=== PATIENT | female | born 1990 | race African-American/Black ===

== ENCOUNTER 2017-07-17 08:55 | Day surgery (SDC) | payer BC, SELFPAY ==
[2017-07-17] MEDS ORDERED: Scopolamine 1.5 mg/72 hour Patch ONE (09:45)
[2017-07-17] MEDS ORDERED: Ketorolac Tromethamine 30 MG/ML VIAL ONE (09:48)
[2017-07-17] MEDS ORDERED: Propofol 200 MG/20 ML VIAL ONE (10:11)
[2017-07-17] MEDS ORDERED: Lidocaine 1% PF 5 ML VIAL ONE (10:11)
[2017-07-17] MEDS ORDERED: Glycopyrrolate 0.2 MG/ML 5 ML SYRINGE ONE (10:11)
[2017-07-17] MEDS ORDERED: Ondansetron HCl/PF 4 MG/2 ML Vial ONE (10:11)
[2017-07-17] MEDS ORDERED: Dexamethasone 20 MG/5 ML VIAL ONE (10:11)
--- NOTE | 2017-07-17 10:16 | HP ---
HISTORY OF PRESENT ILLNESS: Deloris Blank is a 27-year-old black female, Peripheral [employer] who presents to [facility] Room with generalized abdominal pain, sent home without imaging then returned for persistent pain. Because of her return visit in pain, a CAT scan of the abdomen and pelvis was o btained revealing severe constipation and gallstone obstructing the gallbladder outlet. From the [facility] room at [facility] white count was 6.5, hemoglobin 10.9. Urinalysis unremarkable. Liver funct ion tests are normal. ALLERGIES: TRAMADOL. TOBACCO: None. ALCOHOL: Socially. MEDICATIONS: Amiloride, hydrochlorothiazide. PAST SURGICAL HISTORY: Noncontributory. PAST MEDICAL HISTORY: Hypertension. REVIEW OF SYSTEMS: Ten point noncontributory. SOCIAL HISTORY: The patient lives in [place]. PHYSICAL EXAMINATION: VITAL SIGNS: BMI 31, 98.1 degrees, 120/91, 18 respiratory rate, heart rate 92. HEENT: Unremarkable. LUNGS: Clear to auscultation. CARDIAC: Regular rate and rhythm without murmur or gallop. ABDOMEN: Soft, tender right upper quadrant, no guarding. EXTREMITIES: Unremarkable. Ankles without edema. CT scan of abdomen and pelvis with significant constipation and hydropic gallbladder with gallbladder outlet obstruction. LABORATORY: Urinalysis unremarkable. White count 6, hemoglobin 10.9, hematocrit 32, platelet count 239,000, sodium 137, potassium 3.5, chloride 100, BUN 10, creatinine 0.7, albumin 3.6, amylase 63, to raf bilirubin 0.4, GGT 40. ASSESSMENT AND PLAN: 1. Cholecystitis, cholelithiasis. Plan; laparoscopic video cholecystectomy. The risks of infectio n, bleeding, visceral and biliary injury and open procedure discussed, she consents. Questions answe red. 2. Significant constipation, she uses MiraLax once to twice daily, I have enforced to her necessity of mobility, hydration, doubling up the MiraLax double dose in the morning and at night, and use of m agnesium citrate on occasion. 3. She is allergic to ULTRAM, but will use Tylenol, ibuprofen and have given her a prescription for [place] 5/325 to use as needed, #20. 4. Follow up in my office in 2-3 weeks.
[2017-07-17] MEDS ORDERED: Midazolam HCl 2 mg/2 ml Vial ONE (10:51)
[2017-07-17] MEDS ORDERED: Lidocaine 2% w/Epinephrine 1:200K 20 ML VIAL ONE (11:04)
[2017-07-17] MEDS ORDERED: Bupivacaine 0.25% HCL 30 ML VIAL ONE (11:04)
[2017-07-17] MEDS ORDERED: Fentanyl 250 MCG/5 ML VIAL ONE (11:08)
--- NOTE | 2017-07-17 12:29 | OP ---
DATE OF PROCEDURE: 07/17/2017 PREOPERATIVE DIAGNOSES: Chronic cholecystitis, cholelithiasis, acute cholecystitis, cystic duct outl et obstruction, constipation chronic. POSTOPERATIVE DIAGNOSES: Chronic cholecystitis, cholelithiasis, acute cholecystitis, cystic duct out let obstruction, constipation and chronic. PROCEDURE: Laparoscopic video cholecystectomy. SURGEON: Dr. Gavino Hansen ANESTHESIA: General. Local 0.5% Marcaine with epinephrine, 30 mL, mixed with 1% Xylocaine with epin ephrine, 30 40 mL mixture used. PROCEDURE: Under general anesthesia, the abdomen was prepared with ChloraPrep, draped in routine fas hion. Local anesthetic infiltrated into skin and subcutaneous tissue about each port site. Infraumb ilical incision made and pneumoperitoneum to 15 mmHg obtained with the Veress needle, replacing it wi th a 5 port and laparoscope inserted. Right subxiphoid incision made and 11 port placed. Right subc ostal incision made mid clavicular anterior axillary lines and 5 ports placed. Liver appeared to be normal. Fundus of gallbladder grasped cephalad. Infundibulum grasped and reflected laterally. Cyst ic artery and duct dissected free. Critical view obtained with pericholecystic dissection 2/3 cystic placed cystic artery and duct doubly clipped proximally, divided and gallbladder dissected free from the liver bed obtaining good hemostasis prior to division of final peritoneal attachments. Gallblad gama and contents and obstructing stone removed and submitted to Pathology. Good hemostasis ensured. Irrigant and pneumoperitoneum evacuated. All instruments removed and all skin incisions approximate d with interrupted subdermal 4-0 Monocryl and DermaGlue applied.
[2017-07-17] MEDS ORDERED: Promethazine HCl 25 MG/ML VIAL ONE (12:33)
[2017-07-17] MEDS ORDERED: Fentanyl 100 MCG/2 ML VIAL ONE (12:37)
== END 2017-07-17 15:00 | disposition home or self-care (01) ==
LOC: SDC 08:55
PROVIDERS: ATTEND Specialist
PROC: 0FT44ZZ Resection of Gallbladder, Percutaneous Endoscopic Approach (ICD-10-PCS; principal; 2017-07-17)
DX: K80.10 Calculus of gallbladder with chronic cholecystitis without obstruction (principal); K59.09 Other constipation; I10 Essential (primary) hypertension; Z79.899 Other long term (current) drug therapy
CPT/HCPCS: 88304; 96374; J0131; J1100; J1885; J2001; J2250; J2405; J2550; J2704; J3010; S0020

== ENCOUNTER 2022-11-23 13:28 | Outpatient (CLI) | payer BC | END 2022-11-23 13:29 | disposition home or self-care (01) | LOC: ULT 13:28 | PROVIDERS: ATTEND Internal Medicine Cardiovascular Disease | DX: R06.02 Shortness of breath (principal) | CPT/HCPCS: 93306 ==